=== PATIENT | female | born 1990 | race Caucasian/White ===

== ENCOUNTER 2018-10-08 12:42 | Emergency (ER) | payer MEDICAID, OTHER ==
--- NOTE | 2018-10-08 13:06 | EDPHY ---
HPI/HX/ROS/PE/MDM Narrative: CHIEF COMPLAINT: Heart palpitations, history of WPW HISTORY OF PRESENT ILLNESS: This patient is a 28 year old female with history of WPW s/p ablation in 2005. She has not had any recurrence of symptoms since then and has been able to be very active. Last night, she began having a sensation of heartburn and palpitations followed by chest discomfort. This began after she was eating tacos and had a sensation that she could not swallow all the way with associated tightness in her throat and sternum. She denies rapid heart rate. Symptoms were consistent with her prior episodes of SVT (tightness in throat, discomfort) except she did not experience rapid heart rate. She initially thought this was related to anxiety and tried taking Klonopin last night, but that did not relieve her symptoms. Today, her symptoms persist, but are not as severe. She describes the sensation as her heart "fluttering and skipping a beat , almost like vibrating". She endorses some associated lightheadedness and shallow breathing. She denies history of asthma. No known personal or family history of blood clots. No leg pain or swelling. No fever, chills, vomiting, diarrhea, urinary complaints, headache. REVIEW OF SYSTEMS: A comprehensive 10 system review of systems is otherwise negative aside from elements mentioned in the history of present illness and medical decision making. PAST MEDICAL HISTORY: Iuclw-Pmrcphzrr-Myymp s/p ablation in 2005. SOCIAL HISTORY: Single. Employed. Lives in [place]. Nonsmoker. Social alcohol use. Occasional marijuana use. Friend at bedside. VITAL SIGNS: Reviewed by me 117/78, 70, 18 GENERAL: Well-developed, well-nourished, resting comfortably in no respiratory distress. Slightly pale, quiet, and anxious. HEENT: Atraumatic. Eyes: No icterus, no injection. Mouth: moist mucous membranes. No erythema or lesions. Neck: supple with no adenopathy. LUNGS: Clear to auscultation bilaterally, no wheezes, rhonchi or rales. CARDIAC: Regular rate and rhythm, no rubs, murmurs or gallops. ABDOMEN: Soft, nontender, nondistended, bowel sounds normal. BACK: No CVA tenderness. EXTREMITIES: No trauma. No edema. Range of motion is normal throughout. NEURO: Alert and oriented, grossly nonfocal. SKIN: Warm and dry, no rash. PSYCHIATRIC: Normal mentation, no agitation. Portions of this note were transcribed by a certified medical records coder. I personally performed a history, physical exam, medical decision making, and confirmed accuracy of information the transcribed note. ED Course: 28 y/o female with history of WPW s/p ablation presents with one day history of heart palpitations, chest discomfort, and shallow breathing. Her exam today is unremarkable, heart rate is sinus rhythm on the monitor, rate 76. IV established. Plan for EKG, chest x-ray, labs including CBC, chemistries, POC troponin, d-dimer, and BHCG. Plan to administer 500mL IV NS. 12-LEAD EKG: Please see the full report in [facility]. My interpretation: Sinus rhythm. Reviewed laboratory studies. These are completely unremarkable. Troponin and d- dimer are negative. BHCG negative. Chest x-ray is unremarkable. 13:42 Reassessed patient. Discussed imaging and laboratory results. She is reassured that her workup today is normal and does not demonstrate any cardiac abnormalities today. She is comfortable with outpatient follow up at [facility] and with her primary care provider. She continues to complain of some mid- sternal chest discomfort and tightness. Plan to administer GI cocktail for relief. Plan to discharge home in good condition. I encouraged her to try omeprazole as needed as directed on the packaging for recurrence of heartburn-like symptoms. Follow and return precautions discussed. She is comfortable with this plan. MDM: After history and physical examination, the differential for chest pain and tightness was considered, including but not limited to, myocardial ischemia, acute coronary syndrome, pulmonary embolus, GI causes, anxiety, palpitations, chest wall pain, pleural inflammation and pulmonary infectious causes. - Data Points Imaging Results: CXR: Impression: Normal. Dictated By: Filemon Roman MD Imaging: I viewed and interpreted images myself Laboratory Results: Laboratory Results 10/08/18 13:00 10/08/18 13:00 Medications Given: Discontinued Medications Al Hydroxide/Mg Hydroxide (Maalox Susp) 30 ml PO ONCE ONE Stop: 10/08/18 13:49 Last Admin: 10/08/18 13:57 Dose: 30 ml Hyoscyamine Sulfate (Levsin, Hyomax-Sl) 0.25 mg PO ONCE ONE Stop: 10/08/18 13:49 Last Admin: 10/08/18 13:57 Dose: 0.25 mg Sodium Chloride (Ns) 500 mls @ 1,000 mls/hr IV EDNOW ONE PRN Reason: Protocol Stop: 10/08/18 13:42 Last Admin: 10/08/18 13:38 Dose: 500 mls Lidocaine (Lidocaine 2% Viscous) 15 ml PO ONCE ONE Stop: 10/08/18 13:49 Last Admin: 10/08/18 13:57 Dose: 15 ml Point of Care Test Results: Chemistry 10/08/18 13:04 POC Troponin I 0.00 ng/mL ng/mL (0.00-0.08) General Time Seen by Provider: 10/08/18 12:58 Initial Vital Signs: Initial Vital Signs Temperature (C) 36.8 C 10/08/18 12:44 Heart Rate 70 10/08/18 12:44 Respiratory Rate 18 10/08/18 12:44 Blood Pressure 117/78 10/08/18 12:44 O2 Sat (%) 98 10/08/18 12:44 O2 Delivery Mode Room Air Allergies/Adverse Reactions: Penicillins Allergy (Verified 10/08/18 12:44) Home Medications: Medication Instructions Recorded Klonopin (*) 10/08/18 Tiana 28 Tablet 10/08/18 Departure - Departure Disposition: Home, Routine, Self-Care Clinical Impression: Palpitations Chest pain Qualifiers: Chest pain type: unspecified Qualified Code(s): R07.9 - Chest pain, unspecified Condition: Good Instructions: Chest Pain (ED), Heart Palpitations (ED), Esophageal Spasm (ED) Additional Instructions: Your evaluation emergency department is reassuring. There is no evidence of a heart attack, SVT, recurrent severe WPW, irregular heart rate, electrolyte abnormalities, screening test for blood clot in the lung was negative. Your chest x-ray was normal. The other considerations as a cause for your symptoms would include reflux with esophageal spasm, or anxiety. The I would consider beating a course of omeprazole, this is available over-the- counter, especially if these symptoms recur after eating. Please follow up with your primary care physician here in [place]. I have also given you a referral to Cardiology. Please follow up with them for further evaluation. Be sure they are aware this is an emergency department follow-up visit. Referrals: NONE *PRIMARY CARE P,. [Primary Care Provider] - As per Instructions Rojelio Wesley MD [Medical Doctor] - As per Instructions (Please follow up with the Dr. Wesley or 1 of his colleagues as soon as possible. Be sure they are aware this is an emergency department follow-up visit.) Report Scribed for: Cookie Chisholm Report Scribed by: Cherie Finley Date of Report: 10/08/18 Time of Report: 13:14
[2018-10-08] MEDS ORDERED: NS 500 ML IV ONE (13:13)
[2018-10-08 13:20] LABS: PLATELET COUNT 276 10^3/uL (150-400)
[2018-10-08] MEDS ORDERED: MAG HYDROX/AL HYDROX/SIMETH 30 ML UDCUP PO ONE (13:48)
[2018-10-08] MEDS ORDERED: LIDOCAINE 2% VISCOUS 15 ML UDCUP PO ONE (13:48)
[2018-10-08] MEDS ORDERED: HYOSCYAMINE SULFATE 0.125 MG TAB PO ONE (13:48)
[2018-10-08 14:13] VITALS: BP 106/72
--- NOTE | 2018-10-08 20:48 | CPEKG ---
Test Reason : OPEN Blood Pressure : / mmHG Vent. Rate : 060 BPM Atrial Rate : 060 BPM P-R Int : 108 ms QRS Dur : 080 ms QT Int : 412 ms P-R-T Axes : 053 076 044 degrees QTc Int : 412 ms Sinus rhythm Short CO interval Low voltage, precordial leads Confirmed by Cookie Chisholm ([id number]) on 10/08/2018 8:48:11 PM Referred By: Confirmed By:Cookie Chisholm
== END 2018-10-08 14:16 | disposition home or self-care (01) ==
DX: R00.2 Palpitations (principal); R07.9 Chest pain, unspecified; E86.9 Volume depletion, unspecified
CPT/HCPCS: 84484-ER